=== PATIENT | female | born 1975 | race Caucasian/White ===

== ENCOUNTER 2016-09-03 18:14 | Emergency (ER) | payer MEDICARE, MEDICAID ==
[2016-09-03 18:22] VITALS: BP 126/75
[2016-09-03] MEDS ORDERED: Aspirin Low Dose CHEW TAB* 81 MG PO ONE (18:34)
[2016-09-03] MEDS ORDERED: Famotidine IV* 10 MG/ML 2 ML (20 mg) IV SLOW PU ONE (18:39)
[2016-09-03] MEDS ORDERED: NS 0.9% 1000 ML* 1,000 ML IV ONE (18:39)
[2016-09-03] MEDS ORDERED: Ondansetron INJ* 2 MG/ML VIAL IV ONE (18:39)
[2016-09-03] MEDS ORDERED: Ketorolac INJ* 30 MG/ML 1 ML VIAL IV PUSH ONE (18:40)
--- NOTE | 2016-09-03 19:08 | RAD ---
Indication: Nausea and vomiting. Chest pain. Hyperemesis. Chronic symptoms. History of tobacco use. Comparison: February 16, [address] Technique: Upright AP 1844 hours Report: Negative for free air under the diaphragm or pneumomediastinum. Clear lungs and pleural spaces. Negative for pneumothorax. The heart, pulmonary vasculature, and mediastinal contours are unremarkable. IMPRESSION: No evidence for acute intrathoracic disease.
--- NOTE | 2016-09-03 21:07 | ED ---
Ulysses Garcia Matthew, scribed for Tom Cannon MD on 09/03/16 at 1913 . GI/ HPI - HPI Summary HPI Summary: A 40 y/o female presents to the ED with n/v since 05:00. Since onset, she estimates that she's vomited 30 times. Associated symptoms include diffuse chest and abdominal pain, which she believes is secondary to vomiting. - History of Current Complaint Chief Complaint: EDChestPainROMI Time Seen by Provider: 09/03/16 18:34 Stated Complaint: N/V Hx Obtained From: Patient Onset/Duration: Started Hours Ago, Atraumatic, Still Present Timing: Constant Severity: Moderate Current Severity: Moderate Pain Intensity: 10 Location of Pain: Diffuse Associated Signs and Symptoms: Positive: Nausea, Vomiting, Chest Pain - Additional Pertinent History Primary Care Physician: YOVANNY - Allergy/Home Medications Allergies/Adverse Reactions: Allergies Allergy/AdvReac Type Severity Reaction Status Date / Time No Known Allergies Allergy Verified 02/16/16 12:08 PMH/Surg Hx/FS Hx/Imm Hx Endocrine/Hematology History: Denies: Hx Anticoagulant Therapy, Hx Blood Disorders, Hx Blood Transfusions, Hx Bone Marrow Disease, Hx Diabetes, Hx Systemic Lupus Erythematosus, Hx Sickle Cell Disease, Hx Thyroid Disease, Hx Anemia, Hx Unexplained Bleeding, Other Endocrine/Hematological Disorders Cardiovascular History: Denies: Hx Aneurysm, Hx Angina, Hx Angioplasty, Hx Atrial Fibrillation, Hx Auto Implanted Cardiovert Defib, Hx Cardiac Arrest, Hx Cardiomegaly, Hx Congenital Heart Disease, Hx Congestive Heart Failure, Hx Coronary Artery Disease, Hx Deep Vein Thrombosis, Hx Embolism, Hx Hypercholesterolemia, Hx Hypotension, Hx Hypertension, Hx Myocardial Infarction, Hx Pacemaker/ICD, Hx Peripheral Vascular Disease, Hx Rheumatic Fever, Hx Syncope, Hx Valvular Heart Disease, Other Cardiovascular Problems/Disorders Respiratory History: Denies: Hx Asthma, Hx Bronchopulmonary Dysplasia, Hx Chronic Bronchitis, Hx Chronic Obstructive Pulmonary Disease (COPD), Hx Cystic Fibrosis, Hx Lung Cancer , Hx Pleural Effusion, Hx Pneumonia, Hx Pulmonary Edema, Hx Pulmonary Embolism, Hx Seasonal Allergies, Hx Sleep Apnea, Other Respiratory Problems/Disorders GI History: Denies: Hx Cirrhosis, Hx Crohn's Disease, Hx Diverticulosis, Hx Gall Bladder Disease, Hx Gastroesophageal Reflux Disease, Hx Gastrointestinal Bleed, Hx Hiatal Hernia, Hx Irritable Bowel, Hx Jaundice, Hx Obstructive Bowel, Hx Ileostomy, Hx Pyloric Stenosis, Hx Ulcer, Hx Urosepsis, Other GI Disorders Musculoskeletal History: Denies: Hx Arthritis, Hx Rheumatoid Arthritis, Hx Back Problems, Hx Bursitis , Hx Congenital Bone Abnormalities, Hx Fibromyalgia, Hx Gout, Hx Orthopedic Injury, Hx Osteoporosis, Hx Scoliosis, Hx Tendonitis, Other Musculoskeletal History Sensory History: Denies: Hx Contacts or Glasses, Hx Hearing Aid Opthamlomology History: Denies: Hx Contacts or Glasses Neurological History: Denies: Hx CVA, Hx Dementia, Hx Developmental Delay, Hx Headaches, Hx Migraine, Hx Nerve Disease, Hx Peripheral Neuropathy, Hx Seizures, Hx Spinal Cord Injury, Hx Transient Ischemic Attacks (TIA), Other Neuro Impairments/ Disorders Psychiatric History: Reports: Hx Anxiety, Hx Depression - Surgical History Surgery Procedure, Year, and Place: plates/screws in back - low back 1999 Hx Anesthesia Reactions: No Infectious Disease History: No Infectious Disease History: Denies: Hx Clostridium Difficile, Hx Hepatitis, Hx Human Immunodeficiency Virus (HIV), Hx of Known/Suspected MRSA, Hx Shingles, Hx Tuberculosis, Traveled Outside the [place] in Last 30 Days - Family History Family History: No FHx of malignant hyperthermia. No FHx of anesthesia reaction - Social History Alcohol Use: None Substance Use Type: Reports: Marijuana Substance Use Comment - Amount & Last Used: DAILY Hx Tobacco Use: Yes Smoking Status (MU): Current Every Day Smoker Type: Cigarettes Amount Used/How Often: 1/2 ppd Have You Smoked in the Last Year: Yes Review of Systems Constitutional: Negative Eyes: Negative ENT: Negative Positive: Chest Pain - Diffuse Respiratory: Negative Positive: Abdominal Pain - Diffuse, Vomiting, Nausea Genitourinary: Negative Musculoskeletal: Negative Skin: Negative Neurological: Negative Psychological: Normal All Other Systems Reviewed And Are Negative: Yes Physical Exam - Summary Physical Exam Summary: VITAL SIGNS: Reviewed. GENERAL: Patient is a well developed and nourished female who is lying comfortable in the stretcher. Patient is not in any acute respiratory distress. HEAD AND FACE: No signs of trauma. No ecchymosis, hematomas or skull depressions. No sinus tenderness. EYES: PERRLA, EOMI x 2, No injected conjunctiva, no nystagmus. EARS: Hearing grossly intact. Ear canals and tympanic membranes are within normal limits. MOUTH: Oropharynx within normal limits. NECK: Supple, trachea is midline, no adenopathy, no JVD, no carotid bruit, no c- spine tenderness, neck with full ROM. CHEST: Symmetric, no tenderness at palpation LUNGS: Clear to auscultation bilaterally. No wheezing or crackles. CVS: Regular rate and rhythm, S1 and S2 present, no murmurs or gallops appreciated. ABDOMEN: Soft, non-tender. No signs of distention. No rebound no guarding, and no masses palpated. Bowel sounds are normal. EXTREMITIES: FROM in all major joints, no edema, no cyanosis or clubbing. NEURO: Alert and oriented x 3. No acute neurological deficits. Speech is normal and follows commands. SKIN: Dry and warm Triage Information Reviewed: Yes Vital Signs On Initial Exam: Initial Vitals Temp Pulse Resp BP Pulse Ox 98.3 F 70 16 126/75 97 09/03/16 18:18 09/03/16 18:18 09/03/16 18:18 09/03/16 18:18 09/03/16 18:18 Vital Signs Reviewed: Yes Diagnostics - Vital Signs Vital Signs Temp Pulse Resp BP Pulse Ox 09/03/16 18:18 98.3 F 70 16 126/75 97 - Laboratory Lab Statement: Any lab studies that have been ordered have been reviewed, and results considered in the medical decision making process. - Radiology CXR Xray Interpretation: No Acute Changes - IMPRESSION: No evidence for acute intrathoracic disease. Radiology Interpretation Completed By: Parker QUICK Course/Dx - Course Assessment/Plan: A 40 y/o female presents to the ED with n/v since 05:00. Since onset, she estimates that she's vomited 30 times. Associated symptoms include diffuse chest and abdominal pain, which she believes is secondary to vomiting. The patient suddenly felt better. She no longer has chest pain, SOB, nausea, or vomiting. She reports that she wants to go home. At this point, we havent done any of the work-up since the patient just came into the room; however, the patient wants to be discharged. The patient will discharged against medical advice. I extensively discussed with the patient the benefits and risk of leaving AMA. I also discussed the alternatives to leaving AMA, however, the patient still insist to leave the hospital AMA.. The primary nurse and the charge nurse also strongly recommended that the patient should not leave AMA. Patient understands the risk of leaving AMA, which includes but is not restricted to . Patient is Alert and oriented times three and patient verbalizes understanding. Patient has full capacity and is cognitively intact. Patient signed the AMA form. Patient was also advised to return to ED if he changes his mind or if the symptoms worsen or other symptoms appear. Patient understands and agrees. - Diagnoses Differential Diagnoses - Female: Other - ACS, Chest wall pain, URI, GERD, Provider Diagnoses: Chest pain, Nausea and vomiting Discharge - Discharge Plan Condition: Stable Disposition: AGAINST MEDICAL ADVICE Patient Education Materials: Acute Nausea and Vomiting (ED) Referrals: Queenie Montes NP [Primary Care Provider] - 2 Days Additional Instructions: Please follow-up with your primary care physician. The documentation as recorded by the Ulysses ivory Matthew accurately reflects the service I personally performed and the decisions made by me, Tom Cannon MD.
== END 2016-09-03 19:20 | disposition left against medical advice (07) ==
LOC: ED 18:14
DX: R07.9 Chest pain, unspecified (principal); R11.2 Nausea with vomiting, unspecified; F17.210 Nicotine dependence, cigarettes, uncomplicated
CPT/HCPCS: 71010; 93005; 96374; 96375; 99282; J1885; J2405

== ENCOUNTER 2017-06-10 14:36 | Emergency (ER) | payer MEDICARE, MEDICAID ==
[2017-06-10] MEDS ORDERED: NS 0.9% 1000 ML* 3,000 ML IV ONE (14:39)
[2017-06-10] MEDS ORDERED: LORazepam INJ* 2 MG/ML 1 ML VIAL IV ONE (14:39)
[2017-06-10] MEDS ORDERED: Ondansetron INJ* 2 MG/ML VIAL IV ONE (14:39)
[2017-06-10 15:15] LABS: Hematocrit 45 % (35-47); Hemoglobin 15.2 g/dl (12.0-16.0); Mean Corpuscular HGB Conc 34 g/dl (31-36); Mean Corpuscular Hemoglobin 31 pg (27-31); Mean Corpuscular Volume 91 fL (80-97); Mean Platelet Volume 8 um3 (7.4-10.4); Red Blood Count 4.98 10^6/ul (4.0-5.4); Red Cell Distribution Width 13 % (10.5-15); White Blood Count 17.2 10^3/ul (3.5-10.8)
[2017-06-10] MEDS ORDERED: Pantoprazole IV* 40 MG IV ONE (15:29)
[2017-06-10 15:30] LABS: ALT 10 U/L (7-52); AST 16 U/L (13-39); Albumin 4.1 g/dL (3.2-5.2); Alkaline Phosphatase 61 U/L (34-104); Anion Gap 9 mmol/L (2-11); Blood Urea Nitrogen 9 mg/dL (6-24); C Reactive Protein 6.56 mg/L (< 5.00); CO2 Carbon Dioxide 21 mmol/L (22-32); Calcium 9.2 mg/dL (8.6-10.3); Chloride 111 mmol/L (101-111); EGFR African American 119.4 (>60); EGFR Non-African American 92.9 (>60); Globulin 3.5 g/dL (2-4); Glucose 132 mg/dL (70-100); Potassium 3.8 mmol/L (3.5-5.0); Sodium 141 mmol/L (133-145); Total Protein 7.6 g/dL (6.4-8.9)
[2017-06-10 15:42] LABS: Acetaminophen < 15 mcg/mL; Alcohol < 10 mg/dL (<10); Salicylate < 2.50 mg/dL (<30)
--- NOTE | 2017-06-10 16:10 | RAD ---
Indication: Abdominal pain and vomiting. CT of the abdomen and pelvis was performed without oral or IV contrast administration. Coronal and sagittal reconstructed images were obtained. Lung bases demonstrate no pleural fluid, nodules or masses. Heart is of normal size without evidence of pericardial effusion. Liver is normal in size. No focal lesions or intrahepatic ductal dilatation is noted. The spleen is normal in size. The pancreas demonstrates no mass or pancreatic duct dilatation. The common duct is not dilated. Gallbladder demonstrates no calcific gallstones. No pericholecystic fluid or wall thickening is identified. No adrenal lesions are noted. The kidneys demonstrates no hydronephrosis in either kidney. Aorta and inferior vena cava are unremarkable. No hydroureter is noted. No retroperitoneal adenopathy is noted. The ovaries are prominent in size. There is presumed hysterectomy. Structure resembling the right ovary measures approximately 3.2 x 3.4 cm the left ovary measures approximately 2.8 x 2.2 cm. No free fluid is identified. No hernias are noted. Urinary bladder is unremarkable. The bony structures demonstrates fusion of L5-S1. IMPRESSION: No definite bowel obstruction is noted with no dilated loops of bowel although evaluation is limited due to lack of oral contrast. No obstructive uropathy is noted.
--- NOTE | 2017-06-10 16:28 | ED ---
Clyde Garcia Tecjoon, scribed for Anjum Rodriguez MD on 06/10/17 at 1531 . GI/ HPI - HPI Summary HPI Summary: This patient is a 41 year old female BIBA to [facility] with a chief complaint of nausea and vomiting since this morning. Pt states she has been nauseous for a few days, but without vomiting. After eating fast food last night, she had progressively worsening symptoms through the night. The pain is rated 10/10 in severity. Symptoms aggravated by eating. Symptoms alleviated by Ativan, given upon visit. Patient additionally reports chills, diaphoresis, cough, sore throat , general abd pain, and chest pain. Patient denies fever, urinary problems, diarrhea. Patient notes that these symptoms are recurrent ever since her 2004 . Patient also has a Hx of anxiety. - History of Current Complaint Chief Complaint: EDNauseaVomitDiarrh Time Seen by Provider: 06/10/17 14:39 Stated Complaint: VOMITING Hx Obtained From: Patient Hx Last Menstrual Period: depo shots - no periods Onset/Duration: Started Hours Ago - this morning, Still Present Timing: Constant, Intermittent - episodes of vomiting Current Severity: Moderate Pain Intensity: 10 Location of Pain: Diffuse Pain Radiates to: Chest Associated Signs and Symptoms: Positive: Negative - fever, urinary problems, diarrhea, Other: - chills, diaphoresis, cough, sore throat, general abd pain, and chest pain Aggravating Factor(s): Food Alleviating Factor(s): Medication - Ativan, given upon visit - Additional Pertinent History Primary Care Physician: YOVANNY - Allergy/Home Medications Allergies/Adverse Reactions: Allergies Allergy/AdvReac Type Severity Reaction Status Date / Time No Known Allergies Allergy Verified 02/16/16 12:08 PMH/Surg Hx/FS Hx/Imm Hx Previously Healthy: No Endocrine/Hematology History: Denies: Hx Anticoagulant Therapy, Hx Blood Disorders, Hx Blood Transfusions, Hx Bone Marrow Disease, Hx Diabetes, Hx Systemic Lupus Erythematosus, Hx Sickle Cell Disease, Hx Thyroid Disease, Hx Anemia, Hx Unexplained Bleeding, Other Endocrine/Hematological Disorders Cardiovascular History: Denies: Hx Aneurysm, Hx Angina, Hx Angioplasty, Hx Atrial Fibrillation, Hx Auto Implanted Cardiovert Defib, Hx Cardiac Arrest, Hx Cardiomegaly, Hx Congenital Heart Disease, Hx Congestive Heart Failure, Hx Coronary Artery Disease, Hx Deep Vein Thrombosis, Hx Embolism, Hx Hypercholesterolemia, Hx Hypotension, Hx Hypertension, Hx Myocardial Infarction, Hx Pacemaker/ICD, Hx Peripheral Vascular Disease, Hx Rheumatic Fever, Hx Syncope, Hx Valvular Heart Disease, Other Cardiovascular Problems/Disorders Respiratory History: Denies: Hx Asthma, Hx Bronchopulmonary Dysplasia, Hx Chronic Bronchitis, Hx Chronic Obstructive Pulmonary Disease (COPD), Hx Cystic Fibrosis, Hx Lung Cancer , Hx Pleural Effusion, Hx Pneumonia, Hx Pulmonary Edema, Hx Pulmonary Embolism, Hx Seasonal Allergies, Hx Sleep Apnea, Other Respiratory Problems/Disorders GI History: Reports: Other GI Disorders - Chronic N/V Denies: Hx Cirrhosis, Hx Crohn's Disease, Hx Diverticulosis, Hx Gall Bladder Disease, Hx Gastroesophageal Reflux Disease, Hx Gastrointestinal Bleed, Hx Hiatal Hernia, Hx Irritable Bowel, Hx Jaundice, Hx Obstructive Bowel, Hx Ileostomy, Hx Pyloric Stenosis, Hx Ulcer, Hx Urosepsis Musculoskeletal History: Denies: Hx Arthritis, Hx Rheumatoid Arthritis, Hx Back Problems, Hx Bursitis , Hx Congenital Bone Abnormalities, Hx Fibromyalgia, Hx Gout, Hx Orthopedic Injury, Hx Osteoporosis, Hx Scoliosis, Hx Tendonitis, Other Musculoskeletal History Sensory History: Denies: Hx Contacts or Glasses, Hx Hearing Aid Opthamlomology History: Denies: Hx Contacts or Glasses Neurological History: Denies: Hx CVA, Hx Dementia, Hx Developmental Delay, Hx Headaches, Hx Migraine, Hx Nerve Disease, Hx Peripheral Neuropathy, Hx Seizures, Hx Spinal Cord Injury, Hx Transient Ischemic Attacks (TIA), Other Neuro Impairments/ Disorders Psychiatric History: Reports: Hx Anxiety, Hx Depression - Surgical History Surgery Procedure, Year, and Place: plates/screws in back - low back 1999 Hx Anesthesia Reactions: No Infectious Disease History: No Infectious Disease History: Denies: Hx Clostridium Difficile, Hx Hepatitis, Hx Human Immunodeficiency Virus (HIV), Hx of Known/Suspected MRSA, Hx Shingles, Hx Tuberculosis, Traveled Outside the [place] in Last 30 Days - Family History Known Family History: Positive: Other Family History: No FHx of malignant hyperthermia. No FHx of anesthesia reaction - Social History Alcohol Use: Occasionally Hx Substance Use: Yes Substance Use Type: Reports: Marijuana Substance Use Comment - Amount & Last Used: DAILY Hx Tobacco Use: Yes Smoking Status (MU): Light Every Day Tobacco Smoker Type: Cigarettes Amount Used/How Often: 1/2 ppd Have You Smoked in the Last Year: Yes Review of Systems Positive: Chills, Skin Diaphoresis. Negative: Fever Positive: Sore Throat Positive: Chest Pain Positive: Cough Positive: Abdominal Pain, Vomiting, Nausea. Negative: Diarrhea Genitourinary: Negative - any urinary problems Positive: Anxious All Other Systems Reviewed And Are Negative: Yes Physical Exam - Summary Physical Exam Summary: General: mildly anxious Skin: warm, color reflects adequate perfusion, dry Head: normal Eyes: EOMI, KAL ENT: Oral Mucosa dry. Neck: supple, nontender Respiratory: CTA, breath sounds present Cardiovascular: RRR Abdomen: tender in epigastrium Bowel: hypoactive bowel sounds Musculoskeletal: normal, strength/ROM intact Neurological: normal, sensory/motor intact, A&O x3 Psychological: affect/mood appropriate Triage Information Reviewed: Yes Vital Signs On Initial Exam: Initial Vitals BP 103/58 06/10/17 14:49 Vital Signs Reviewed: Yes - Alfredo Coma Scale Coma Scale Total: 15 Diagnostics - Vital Signs Vital Signs Temp Pulse Resp BP Pulse Ox 06/10/17 14:59 100 06/10/17 14:54 96.7 F 61 20 103/58 97 06/10/17 14:52 20 06/10/17 14:50 76 98 06/10/17 14:49 103/58 - Laboratory Lab Results: Lab Results 06/10/17 06/10/17 Range/Units 14:47 14:47 WBC 17.2 H (3.5-10.8) 10^3/ul RBC 4.98 (4.0-5.4) 10^6/ul Hgb 15.2 (12.0-16.0) g/dl Hct 45 (35-47) % MCV 91 (80-97) fL MCH 31 (27-31) pg MCHC 34 (31-36) g/dl RDW 13 (10.5-15) % Plt Count 374 (150-450) 10^3/ul MPV 8 (7.4-10.4) um3 Neut % (Auto) 83.7 H (38-83) % Lymph % (Auto) 10.9 L (25-47) % Mcintosh % (Auto) 4.6 (1-9) % Eos % (Auto) 0.4 (0-6) % Baso % (Auto) 0.4 (0-2) % Absolute Neuts (auto) 14.4 H (1.5-7.7) 10^3/ul Absolute Lymphs (auto) 1.9 (1.0-4.8) 10^3/ul Absolute Monos (auto) 0.8 (0-0.8) 10^3/ul Absolute Eos (auto) 0.1 (0-0.6) 10^3/ul Absolute Basos (auto) 0.1 (0-0.2) 10^3/ul Absolute Nucleated RBC 0.01 10^3/ul Nucleated RBC % 0.1 INR (Anticoag Therapy) 0.92 (0.77-1.02) APTT 27.9 (26.0-36.3) seconds Result Diagrams: 06/10/17 14:47 06/10/17 14:47 Lab Statement: Any lab studies that have been ordered have been reviewed, and results considered in the medical decision making process. - CT CT Abd/Pel CT Interpretation: Positive (See Comments) - IMPRESSION: No definite bowel obstruction is noted with no dilated loops of bowel although evaluation is limited due to lack of oral contrast. No obstructive uropathy is noted. ED physician has reviewed this radiology report. CT Interpretation Completed By: Radiologist ABDELRAHMAN Course/Dx - Course Course Of Treatment: IMPROVED IN ED. DISCUSSED RESULTS WITH PATIENT. TOLERATED PO. F/U PMD AND GI; RETURN IF WORSE. - Diagnoses Provider Diagnoses: Nausea & vomiting, Dehydration, Abdominal pain Discharge - Discharge Plan Condition: Stable Disposition: HOME Prescriptions: Ondansetron ODT TAB* [Zofran 4 MG Odt TAB*] 4 mg PO Q6H PRN #10 tab.odt PRN Reason: Nausea Patient Education Materials: Acute Nausea and Vomiting (ED), Abdominal Pain (ED ), Dehydration (ED) Referrals: Jessa Michael MD [Primary Care Provider] - [facility] [Provider Group] Additional Instructions: FOLLOW UP WITH YOUR PRIMARY CARE DOCTOR AND GASTROENTEROLOGY. RETURN TO THE EMERGENCY DEPARTMENT FOR ANY WORSENING OF YOUR CONDITION; PAIN, FEVER, DEHYDRATION, YOU FEEL ILL OR QUESTIONS OR CONCERNS. The documentation as recorded by the Clyde ivory Tecjoon accurately reflects the service I personally performed and the decisions made by me, Anjum Rodriguez MD.
[2017-06-10] MEDS ORDERED: O ndansetron ODT 4MG 2TAB PRPK 4 MG PAK PO ONE ×2 (16:29→16:32)
[2017-06-10 17:10] VITALS: BP 119/83
== END 2017-06-10 17:11 | disposition home or self-care (01) ==
LOC: ED 14:36
DX: R11.2 Nausea with vomiting, unspecified (principal); E86.0 Dehydration; R10.9 Unspecified abdominal pain; F17.210 Nicotine dependence, cigarettes, uncomplicated
CPT/HCPCS: 36415; 74176; 80053; 80320; 80329; 83605; 83735; 84702; 85025; 85610; 85730; 86140; 96361; 96374; 96375; 99283; A9270-GY; G0480; J2060; J2405

== ENCOUNTER 2017-07-27 07:04 | Day surgery (SDC) | payer MEDICARE, MEDICAID ==
--- NOTE | 2017-07-18 16:40 | HP ---
CC: Dr. Jessa Michael* PREOPERATIVE HISTORY AND PHYSICAL: DATE OF ADMISSION: This patient is scheduled for same-day surgery admission by Dr. Monterroso on 07/27/17. DATE OF PREOPERATIVE HISTORY AND PHYSICAL EXAMINATION: 07/18/17. ATTENDING SURGEON: Dr. Jane Monterroso * (dictated by Winnie Davila NP) CHIEF COMPLAINT: Left breast mass. HISTORY OF PRESENT ILLNESS: The patient is a 41-year-old female referred to Dr. Monterroso by nurse practitioner, Queenie Montes, for evaluation of a left breast "tumor." The patient requested a mammogram, which was done 06/28/17, the patient was having drainage from the right nipple and was started on an antibiotic with resolution of the drainage; however, the baseline mammogram identified a "tumor" in the left breast, which was described as a solid nodule at the 12 o'clock position. 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 The imaging also found a complex cyst and asymmetric density in the right breast for which 6-month followup has been recommended. Menarche was at age 10, hysterectomy at age 40 for fibroids; first delivery was at age 14; the patient previously took control pills for more than 10 years. She has never had radiation to the chest. She has no family history of breast or ovarian cancer. Dr. Monterroso has examined the patient and has recommended mammo- guided needle localization excision of the left breast phyllodes tumor as a same -day surgery procedure. Dr. Monterroso discussed the nature of the surgical procedure, the rationale for the procedure, the relevant risks and benefits, and today I reviewed the expected postoperative care and recovery. The patient has had a chance to ask questions and stated that she understands the information and is satisfied with the answers given to her questions. She will sign surgical consent on the day of surgery. PAST MEDICAL HISTORY: Significant for obesity, depression, and smoking. PAST SURGICAL HISTORY: Hysterectomy for large fibroids, January 2016 and back surgery, 2000. OB HISTORY: 7, para 5, 2. She is up-to-date with breast exam , mammogram, pelvic and Pap smear and is status post hysterectomy. MEDICATIONS: 1. Lorazepam 1 mg p.o. every 12 hours p.r.n. anxiety. 2. Duloxetine 60 mg p.o. daily at bedtime. 3. Cyclobenzaprine 10 mg daily at bedtime. 4. Hydrocodone/acetaminophen 10/325 mg 1 tablet every 8 hours p.r.n. back pain. 5. NicoDerm CQ 21 mg patch, reapply every 24 hours. ALLERGIES: No known drug allergies. SOCIAL HISTORY: She is ; she is employed as a home health aide. She is currently smoking approximately 3 cigarettes per day. Previously, was smoking a half pack per day. She is using a NicoDerm patch to try to quit. She denies the use of alcohol or other substances. FAMILY HISTORY: No known breast cancer, ovarian cancer. No known anesthesia complications, bleeding disorders, or clotting disorders. REVIEW OF SYSTEMS: Constitutional: No fevers, chills, excessive fatigue, or weight loss. Endocrine: No diabetes or thyroid disease. Hematologic: No easy bruising or bleeding. Breasts: As described in history of present illness. Respiratory: No dyspnea on exertion or chronic cough. She is trying to quit smoking with the use of a NicoDerm patch and she does have a quit date. Cardiovascular: No anginal chest pain or palpitations. Gastrointestinal: No nausea, vomiting, diarrhea, or constipation, or change in bowel habits. Genitourinary: No dysuria. Musculoskeletal: Chronic lower back pain. Neurologic: No headache or blurred vision or areas of focal weakness or numbness. General: No history of deep vein thrombosis or pulmonary embolism; she states that with general anesthesia for her hysterectomy in January 2016, she had what she described as hypertension and low heart rate in the PACU. PHYSICAL EXAMINATION GENERAL SURVEY: The patient is a 41-year-old female, well developed, overweight , in no acute distress. VITAL SIGNS: Height 64 inches, weight 205 pounds, body mass index 35. Blood pressure 138/80, pulse 80 and regular, respiratory rate 16, temperature 97.1 tympanic. HEENT: Benign. NECK: Supple. No cervical lymphadenopathy. No supraclavicular lymphadenopathy. BREASTS: Symmetric. No masses noted in the left breast. No masses noted in the right breast. No nipple discharge from either nipple. No palpable axillary lymphadenopathy. LUNGS: Breath sounds bilaterally clear and equal. HEART: Regular rate and rhythm. No murmurs or rubs appreciated. ABDOMEN: Active bowel sounds. Well-healed Pfannenstiel scar, soft, nondistended, nontender throughout. No obvious masses or ventral or incisional hernias. No organomegaly. PELVIC: Exam done recently, not repeated. RECTAL: Exam done recently, not repeated. EXTREMITIES: Warm without edema or skin ulceration. NEUROLOGIC: Alert and oriented x3. Steady gait. SKIN: Warm, dry, intact. IMPRESSION: Left breast phyllodes tumor. PLAN: Same-day surgery admission to Dr. Monterroso's service on 07/27/17, for mammo-guided needle localization excision of the left breast phyllodes tumor. BRIE DAVILA, [employer] [id number]/[facility] #: [id number] NAJMA
[~2017-07-27 07:04] MED LIST: Buffered Lidocaine 0.9% SYRIN* 5 ML/SYR SYRINGE INTRADERM ONE; Dexamethasone IV* 4 MG/ML 1 ML (4 MG) IV SLOW PU ONE; Famotidine IV* 10 MG/ML 2 ML (20 mg) IV ONE
[2017-07-27] MEDS ORDERED: Lidocaine 2.5%/Prilocain 2.5%* 5 GM TUBE ONE (07:13)
[2017-07-27] MEDS ORDERED: Buffered Lidocaine 0.9% SYRIN* 5 ML/SYR SYRINGE ONE (07:13)
[2017-07-27] MEDS ORDERED: ceFAZolin 2 GM PREMIX (*) 2 GM/50 ML BAG IVPB ONE (09:07)
[2017-07-27] MEDS ORDERED: Famotidine IV* 10 MG/ML 2 ML (20 mg) ONE (09:07)
[2017-07-27] MEDS ORDERED: Dexamethasone IV* 4 MG/ML 1 ML (4 MG) ONE (09:07)
--- NOTE | 2017-07-27 10:14 | RAD ---
INDICATION: Left breast needle localization. COMPARISON: Correlation is made with prior mammograms and breast ultrasound from June 28, 2017 and prior mammograms and breast ultrasound from July 04, 2017. TECHNIQUE: The benefits and risks of the procedure were explained to the patient. The patient consented to the exam. A timeout was performed before beginning the procedure. The patient was prepped in the usual sterile fashion. The breast was anesthetized with buffered 1% lidocaine. Using digital mammographic guidance a needle was placed immediately adjacent to a small nodule and localization clip from the prior biopsy. This was exchanged for a Hawkin's type wire. Postprocedure mammograms demonstrate that the wire extending through the region of the nodule in the adjacent to the biopsy clip. The wire tip extends approximately 3.5 cm beyond the lesion.. The patient tolerated the procedure without incident. The results of this exam were discussed with the referring clinician. IMPRESSION: SUCCESSFUL NEEDLE LOCALIZATION PROCEDURE.
[2017-07-27] MEDS ORDERED: Bupivacaine 0.5% SDV PF* 10-30ML VIAL ONE (11:33)
[2017-07-27] MEDS ORDERED: Lidocaine 1% INJ* 10 MG/ML 30 ML SDV ONE (11:33)
[2017-07-27] MEDS ORDERED: Midazolam* 1 MG/ML 5 ML VIAL (5 MG) ONE (11:39)
[2017-07-27] MEDS ORDERED: fentaNYL* 50 MCG/ML 2 ML VIAL (100 MCG VIAL) ONE ×2 (11:39→12:01)
[2017-07-27] MEDS ORDERED: Naloxone* 0.4 MG/ML 1 ML VIAL IV PRN (11:40)
[2017-07-27] MEDS ORDERED: DiMENhydriNATE IV* 50 MG/ML VIAL IV PUSH PRN (11:40)
[2017-07-27] MEDS ORDERED: oxyCODONE/Acetamin 5/325 MG* TAB PO PRN (11:40)
[2017-07-27] MEDS ORDERED: HYDROcodone/ACETAMIN 5-325 MG* 1 TAB PO PRN (11:40)
[2017-07-27] MEDS ORDERED: fentaNYL* 50 MCG/ML 2 ML VIAL (100 MCG VIAL) IV PRN (11:40)
[2017-07-27] MEDS ORDERED: Lidocaine 2% PF * 5 ML VIAL ONE (11:54)
[2017-07-27] MEDS ORDERED: Propofol* 10 MG/ML 20 ML BTL IV PUSH ONE ×2 (11:54→12:32)
[2017-07-27] MEDS ORDERED: Ondansetron INJ* 2 MG/ML VIAL ONE (12:29)
[2017-07-27 15:07] VITALS: BP 122/78
--- NOTE | 2017-07-28 13:18 | OP ---
CC: Dr. Jessa Michael * DATE OF OPERATION: 07/27/17 - [facility] DATE OF : 71 SURGEON: Jane Monterroso MD MANAGER FLIGHT OPERATIONS: There was no clinical physician assistant for this case. PRE-OP DIAGNOSIS: Left breast phyllodes tumor. POST-OP DIAGNOSIS: Left breast phyllodes tumor. OPERATIVE PROCEDURE: Needle localization and excision of left breast phyllodes tumor. INDICATIONS: This patient is a 41-year-old woman recently diagnosed with a phyllodes tumor for whom wide excision has been advised. On the morning of surgery, she underwent needle localization without difficulty. DESCRIPTION OF PROCEDURE: She was then brought to the operating room, placed on the OR table in a supine position and given IV sedation. The left breast was prepped and draped in the usual sterile fashion, taking care not to dislodge the localizing wire. After infiltrating with local anesthetic, a curvilinear elliptical incision encompassing the wire was made. Subcutaneous tissue was divided with electrocautery to completely excise the massive tissue from around the wire. However, it was noted that the deepest portion came across the wire at the level of the notch, which was just beyond the clip. So, the decision was made to remove the tissue from around the wire, leaving the wire in situ and note this specimen as the specimen containing the clip with the usual markings and the additional brian of a single stitch marking the appositional surface. Then, the wire in the breast was removed by excising with electrocautery tissue from around the wire. This time, the wire came out with the tissue. The tissue was marked in usual fashion again with a single stitch marking the appositional surface. This tissue was notated as the tissue containing the wire. The specimens were sent to Radiology and eventually the report came back from Radiology that they did not indeed contain the abnormality. Meanwhile, hemostasis was achieved with a combination of electrocautery and suture ligature. A bleeding vessel in the depth has the wound, required several suture ligatures. Once hemostasis appeared adequate, the wound was irrigated copiously with saline. Additional local was instilled into the wound and then closure was accomplished with 3-0 Polysorb in a subcutaneous layer and the skin was closed with 4-0 Prolene in subcuticular fashion. Steri-Strips and a dry sterile dressing were applied. All sponge and instrument counts were correct. The patient tolerated the procedure well and was transferred to Recovery in a stable condition. [id number]/[facility] #: [id number] NAJMA
== END 2017-07-27 15:47 | disposition home or self-care (01) ==
LOC: SDS 07:04
PROVIDERS: ATTEND Surgery
DX: D24.2 Benign neoplasm of left breast (principal); F17.210 Nicotine dependence, cigarettes, uncomplicated; E66.9 Obesity, unspecified; F32.9 Major depressive disorder, single episode, unspecified
CPT/HCPCS: 88307; A9270-GY; J0690; J1100; J2250; J2405; J2704; J3010

== ENCOUNTER 2017-10-28 17:07 | Emergency (ER) | payer MEDICARE, MEDICAID ==
[2017-10-28 17:22] VITALS: BP 140/93
--- NOTE | 2017-10-28 17:27 | UC ---
Back Pain HPI - HPI Summary HPI Summary: 42 yo female presents with low back pain for the last 3 days. 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 Has some lumbar pain with intermittent "shooting" pain down back of right leg. Taking ibuprofen with little relief. Has a hx of lower back surgery 18 years ago. Denies specific injury, fever, chills, dysuria, loss of bowel/bladder control. - History of Current Complaint Chief Complaint: UCBackPain Stated Complaint: BACK INJURY Time Seen by Provider: 10/28/17 17:27 Hx Obtained From: Patient Hx Last Menstrual Period: depo shots - no periods Onset/Duration: Sudden Onset Severity Initially: Severe Severity Currently: Severe Pain Intensity: 10 Pain Scale Used: 0-10 Numeric Aggravating Factor(s): Movement, Bending Alleviating Factor(s): Rest, Position - Allergies/Home Medications Allergies/Adverse Reactions: Allergies Allergy/AdvReac Type Severity Reaction Status Date / Time No Known Allergies Allergy Verified 10/28/17 17:22 Home Medications: Home Medications Ibuprofen 40 mg PO Q6H PRN 10/28/17 [History Confirmed 10/28/17] Sertraline* [Zoloft*] 25 mg PO DAILY 10/28/17 [History Confirmed 10/28/17] clonazePAM TAB(*) [KlonoPIN TAB(*)] 1 mg PO BID PRN 10/28/17 [History Confirmed 10/28/17] PMH/Surg Hx/FS Hx/Imm Hx Previously Healthy: Yes Psychological History: Anxiety, Depression Other History Of: Negative For: Anticoagulant Therapy - Surgical History Surgical History: Yes Surgery Procedure, Year, and Place: plates/screws in back - low back 1999. hysterectomy 01/2015 [facility] [place] - Family History Known Family History: Positive: Other Family History: No FHx of malignant hyperthermia. No FHx of anesthesia reaction - Social History Occupation: Employed Full-time Lives: With Family Alcohol Use: Rare Alcohol Amount: 2 A MONTH Substance Use Type: None Substance Use Comment - Amount & Last Used: DAILY Smoking Status (MU): Light Every Day Tobacco Smoker Type: Cigarettes Amount Used/How Often: 1/2 PPD Length of Time of Smoking/Using Tobacco: 29 YEARS Have You Smoked in the Last Year: Yes Household Exposure Type: Cigarettes - Immunization History Most Recent Influenza Vaccination: Unknown Most Recent Tetanus Shot: WITHIN LAST 10 YEARS Most Recent Pneumonia Vaccination: NA Review of Systems Constitutional: Negative Skin: Negative Respiratory: Negative Cardiovascular: Negative Gastrointestinal: Negative Genitourinary: Negative Neurovascular: Negative Musculoskeletal: Other: - Low back pain Neurological: Negative Psychological: Negative All Other Systems Reviewed And Are Negative: Yes Physical Exam - Summary Physical Exam Summary: GENERAL: NAD. WDWN. No pain distress. SKIN: No rashes, sores, lesions, or open wounds. NECK: Supple. FROM. Nontender. No lymphadenopathy. CHEST: CTAB. No r/r/w. No accessory muscle use. Breathing comfortably and in no distress. CV: RRR. Without m/r/g. Pulses intact. Brisk cap refill. MSK: TTP over right lumbar paraspinal muscles. Pain with flexion and extension of spine. Positive SLR right. Strength 5/5 B/L LEs including dorsiflexion and plantar flexion. FROM B/L LEs. No edema. NEURO: Alert. CN II-XII grossly intact. Sensations intact B/L LEs L3-S1. PSYCH: Age appropriate behavior. Triage Information Reviewed: Yes Vital Signs: Initial Vital Signs Temp 98.2 F 10/28/17 17:17 Pulse 86 10/28/17 17:17 Resp 16 10/28/17 17:17 BP 140/93 10/28/17 17:17 Pulse Ox 98 10/28/17 17:17 Back Pain Course/Dx - Course Course Of Treatment: XR: IMPRESSION: Grade 1 spondylolisthesis of L5 on S1. Degenerative disc disease at L4-L5 and L5-S1. Posterior fusion of L5 and S1. Suspect muscle spasm of lower back. Toradol IM given in clinic. Rx for meloxicam. Continue flexeril at home. I advised her to follow up with a neurosurgeon for her spondylolisthesis and surgical hx as her previous surgeon has retired. - Differential Dx/Diagnosis Provider Diagnoses: Low back spasm Discharge - Sign-Out/Discharge Documenting (check all that apply): Discharge/Admit/Transfer - Discharge Plan Condition: Stable Disposition: HOME Prescriptions: Meloxicam 7.5 mg PO BID PRN #14 tab PRN Reason: Pain Patient Education Materials: Muscle Spasm (ED), Lower Back Exercises (ED) Forms: *Work Release Referrals: Jessa Michael MD [Primary Care Provider] - Yulissa Nelson MD [Medical Doctor] - Additional Instructions: If you develop a fever, shortness of breath, chest pain, new or worsening symptoms - please call your PCP or go to the ED. Your blood pressure was high at todays visit. Please see your primary provider within 4 weeks for recheck and re-evaluation. 1) Please schedule a follow up appointment with neurosurgery at the number below 2) Continue your flexeril. Please do not take ibuprofen in addition to the meloxicam as these medications may interact. - Billing Disposition and Condition Condition: STABLE Disposition: HOME
--- NOTE | 2017-10-28 17:51 | RAD ---
Indication: Right leg pain. 5 views of lumbar spine are reviewed. There is grade 1 spondylolisthesis of L5 on S1 with posterior fusion and intervertebral disc replacement at L5-S1. Mild degenerative disc disease at L1-L2 and L2-L3 is noted. IMPRESSION: Grade 1 spondylolisthesis of L5 on S1. Degenerative disc disease at L4-L5 and L5-S1. Posterior fusion of L5 and S1.
[2017-10-28] MEDS ORDERED: Ketorolac INJ* 30 MG/ML 1 ML VIAL IM ONE (17:59)
== END 2017-10-28 18:24 | disposition home or self-care (01) ==
LOC: UCEAST 17:07
DX: M62.830 Muscle spasm of back (principal); M43.17 Spondylolisthesis, lumbosacral region; M51.36 Other intervertebral disc degeneration, lumbar region; F41.9 Anxiety disorder, unspecified; F32.9 Major depressive disorder, single episode, unspecified; F17.210 Nicotine dependence, cigarettes, uncomplicated
CPT/HCPCS: 72110; 96372; 99212; G0463; J1885

== ENCOUNTER 2018-05-19 10:48 | Emergency (ER) | payer MEDICARE, MEDICAID ==
[2018-05-19] MEDS ORDERED: Ondansetron INJ* 2 MG/ML VIAL ONE (11:02)
[2018-05-19] MEDS ORDERED: NS 0.9% 1000 ML* 1,000 ML ONE (11:02)
[2018-05-19] MEDS ORDERED: NS 0.9% 1000 ML* 2,000 ML IV ONE (11:05)
[2018-05-19] MEDS ORDERED: Ondansetron INJ* 2 MG/ML VIAL IV ONE (11:05)
--- NOTE | 2018-05-19 11:05 | ED ---
GI/ HPI - HPI Summary HPI Summary: A 42 y/o female presents to [facility] with a chief complaint of vomiting since 08: 00 05/19/18. The patient states that she has had this problem before. She claims that she drank the night of 05/18/18 and which she believes is the cause of her vomiting. She reports that in the past her vomiting would not stop and her pain would become worse so she was anxious and came into the ED before her pain was too severe. She also c/o nausea. She denies any possibility of since she has a SHx of hysterectomy. She also has a Hx of back surgery. - History of Current Complaint Chief Complaint: EDNauseaVomitDiarrh Time Seen by Provider: 05/19/18 11:01 Stated Complaint: VOMITING Hx Obtained From: Patient Hx Last Menstrual Period: depo shots - no periods Onset/Duration: Started Hours Ago, Still Present Timing: Constant Severity: Moderate Current Severity: Moderate Pain Intensity: 0 Associated Signs and Symptoms: Positive: Nausea - Additional Pertinent History Primary Care Physician: YOVANNY - Allergy/Home Medications Allergies/Adverse Reactions: Allergies Allergy/AdvReac Type Severity Reaction Status Date / Time No Known Allergies Allergy Verified 05/19/18 10:53 PMH/Surg Hx/FS Hx/Imm Hx Endocrine/Hematology History: Denies: Hx Anticoagulant Therapy, Hx Blood Disorders, Hx Blood Transfusions, Hx Bone Marrow Disease, Hx Diabetes, Hx Systemic Lupus Erythematosus, Hx Sickle Cell Disease, Hx Thyroid Disease, Hx Anemia, Hx Unexplained Bleeding, Other Endocrine/Hematological Disorders Cardiovascular History: Denies: Hx Aneurysm, Hx Angina, Hx Angioplasty, Hx Atrial Fibrillation, Hx Auto Implanted Cardiovert Defib, Hx Cardiac Arrest, Hx Cardiomegaly, Hx Congenital Heart Disease, Hx Congestive Heart Failure, Hx Coronary Artery Disease, Hx Deep Vein Thrombosis, Hx Embolism, Hx Hypercholesterolemia, Hx Hypotension, Hx Hypertension, Hx Myocardial Infarction, Hx Pacemaker/ICD, Hx Peripheral Vascular Disease, Hx Rheumatic Fever, Hx Syncope, Hx Valvular Heart Disease, Other Cardiovascular Problems/Disorders Respiratory History: Denies: Hx Asthma, Hx Bronchopulmonary Dysplasia, Hx Chronic Bronchitis, Hx Chronic Obstructive Pulmonary Disease (COPD), Hx Cystic Fibrosis, Hx Lung Cancer , Hx Pleural Effusion, Hx Pneumonia, Hx Pulmonary Edema, Hx Pulmonary Embolism, Hx Seasonal Allergies, Hx Sleep Apnea, Other Respiratory Problems/Disorders GI History: Denies: Hx Cirrhosis, Hx Crohn's Disease, Hx Diverticulosis, Hx Gall Bladder Disease, Hx Gastroesophageal Reflux Disease, Hx Gastrointestinal Bleed, Hx Hiatal Hernia, Hx Irritable Bowel, Hx Jaundice, Hx Obstructive Bowel, Hx Ileostomy, Hx Pyloric Stenosis, Hx Ulcer, Hx Urosepsis, Other GI Disorders History: Denies: Hx Renal Disease Musculoskeletal History: Denies: Hx Arthritis, Hx Rheumatoid Arthritis, Hx Back Problems, Hx Bursitis , Hx Congenital Bone Abnormalities, Hx Fibromyalgia, Hx Gout, Hx Orthopedic Injury, Hx Osteoporosis, Hx Scoliosis, Hx Tendonitis, Other Musculoskeletal History Sensory History: Reports: Hx Contacts or Glasses - OTC reading glasses Denies: Hx Hearing Aid Opthamlomology History: Reports: Hx Contacts or Glasses - OTC reading glasses Neurological History: Denies: Hx CVA, Hx Dementia, Hx Developmental Delay, Hx Headaches, Hx Migraine, Hx Nerve Disease, Hx Peripheral Neuropathy, Hx Seizures, Hx Spinal Cord Injury, Hx Transient Ischemic Attacks (TIA), Other Neuro Impairments/ Disorders Psychiatric History: Reports: Hx Anxiety, Hx Depression Denies: Hx Panic Disorder - Cancer History Hx Chemotherapy: No - Surgical History Surgery Procedure, Year, and Place: PLATES/SCREWS IN BACK-LUMBAR 1999, HYSTERECTOMY 01/2015 [facility], BENIGN TUMOR REMOVED FROM BREAST Hx Anesthesia Reactions: No Infectious Disease History: No Infectious Disease History: Denies: Hx Clostridium Difficile, Hx Hepatitis, Hx Human Immunodeficiency Virus (HIV), Hx of Known/Suspected MRSA, Hx Shingles, Hx Tuberculosis, Traveled Outside the [place] in Last 30 Days - Family History Known Family History: Positive: Other Family History: No FHx of malignant hyperthermia. No FHx of anesthesia reaction - Social History Alcohol Use: Rare Alcohol Amount: 2 A MONTH Hx Substance Use: Yes Substance Use Type: Reports: None Substance Use Comment - Amount & Last Used: DAILY Hx Tobacco Use: Yes Smoking Status (MU): Light Every Day Tobacco Smoker Type: Cigarettes Amount Used/How Often: 1/2 PPD Length of Time of Smoking/Using Tobacco: 29 YEARS Have You Smoked in the Last Year: Yes Review of Systems Positive: Vomiting, Nausea Positive: Anxious All Other Systems Reviewed And Are Negative: Yes Physical Exam - Summary Physical Exam Summary: Appearance: The patient is well-nourished and is retching. Skin: The skin is warm and dry and skin color reflects adequate perfusion. HEENT: The head is normocephalic and atraumatic. The pupils are equal and reactive. The conjunctivae are clear and without drainage. Nares are patent and without drainage. Mouth reveals moist mucous membranes and the throat is without erythema and exudate. The external ears are intact. The ear canals are patent and without drainage. The tympanic membranes are intact. Neck: The neck is supple with full range of motion and non-tender. There are no carotid bruits. There is no neck vein distension. Respiratory: Chest is non-tender. Lungs are clear to auscultation and breath sounds are symmetrical and equal. Cardiovascular: Heart is regular rate and rhythm. There is no murmur or rub auscultated. There is no peripheral edema and pulses are symmetrical and equal. Abdomen: The abdomen is soft and non-tender. There are normal bowel sounds heard in all four quadrants and there is no organomegaly palpated. Musculoskeletal: There is no back tenderness noted. Extremities are non-tender with full range of motion. There is good capillary refill. There is no peripheral edema or calf tenderness elicited. Neurological: Patient is alert and oriented to person, place and time. The patient has symmetrical motor strength in all four extremities. Cranial nerves are grossly intact. Deep tendon reflexes are symmetrical and equal in all four extremities. Psychiatric: The patient exhibits anxiety. Triage Information Reviewed: Yes Vital Signs On Initial Exam: Initial Vitals Temp Pulse Resp BP Pulse Ox 96.9 F 131 24 156/132 100 05/19/18 10:53 05/19/18 10:53 05/19/18 10:53 05/19/18 10:53 05/19/18 10:53 Vital Signs Reviewed: Yes Diagnostics - Vital Signs Vital Signs Temp Pulse Resp BP Pulse Ox 05/19/18 10:53 96.9 F 131 24 156/132 100 - Laboratory Result Diagrams: 05/19/18 11:18 05/19/18 11:18 Lab Statement: Any lab studies that have been ordered have been reviewed, and results considered in the medical decision making process. Re-Evaluation - Re-Evaluation First Eval Re-Evaluation Time: 12:00 Change: Improved Comment: Patient is feeling slightly better. GIGU Course/Dx - Course Course Of Treatment: Ms. Birmingham presented complaining of intractable dry heaving. This happened to her before usually within an infection or sometimes when she drinks alcohol. She did drink alcohol last night and has no other complaints of an infectious nature. She was in quite a bit of distress when she arrived but nontoxic in appearance and her vitals are stable aside from some tachycardia. IV was initiated and she was given fluids and Zofran and this improved her tachycardia and she requested something for her anxiety. She was given Ativan and felt improved and was able to take fluids and solid foods orally and keep them down. She was discharged in stable condition - Diagnoses Provider Diagnoses: Nausea and vomiting Discharge - Sign-Out/Discharge Documenting (check all that apply): Patient Departure - DC - Discharge Plan Condition: Stable Disposition: HOME Patient Education Materials: Acute Nausea and Vomiting (ED) Referrals: Jessa Michael MD [Primary Care Provider] - (2-3 days) Additional Instructions: Follow up with your PCP in 2-3 days. Return to the ED for new or worsening symptoms. - Billing Disposition and Condition Condition: STABLE Disposition: Home - Attestation Statements Document Initiated by Scribe: Yes Documenting Scribe: Guerrero Boudreaux Provider For Whom Carmen is Documenting (Include Credential): Kamran Nazario MD Scribe Attestation: Guerrero Garcia, scribed for Kamran Nazario MD on 05/19/18 at 1245. Scribe Documentation Reviewed: Yes Provider Attestation: The documentation as recorded by the Guerrero ivory accurately reflects the service I personally performed and the decisions made by me, Kamran Nazario MD Status of Scribe Document: Viewed
[2018-05-19] MEDS ORDERED: LORazepam INJ* 2 MG/ML 1 ML VIAL IV ONE (11:28)
[2018-05-19 11:44] LABS: ABS Basophils 0.1 10^3/ul (0-0.2); ABS Eosinophils 0 10^3/ul (0-0.6); ABS Lymphocytes 1.5 10^3/ul (1.0-4.8); ABS Monocytes 0.5 10^3/ul (0-0.8); ABS Neutrophils 9.1 10^3/ul (1.5-7.7); ABS Nucleated RBC 0 10^3/ul; Eosinophil % 0.2 %; Hematocrit 46 % (35-47); Hemoglobin 15.4 g/dl (12.0-16.0); Lymphocyte % 13.5 %; Mean Corpuscular HGB Conc 33 g/dl (31-36); Mean Corpuscular Hemoglobin 30 pg (27-31); Mean Corpuscular Volume 90 fL (80-97); Mean Platelet Volume 7.5 fL (7.4-10.4); Nucleated Red Blood Cells % 0; Platelet Count 396 10^3/ul (150-450); Red Cell Distribution Width 13 % (10.5-15); White Blood Count 11.2 10^3/ul (3.5-10.8)
[2018-05-19 12:57] VITALS: BP 134/78
== END 2018-05-19 12:57 | disposition home or self-care (01) ==
LOC: ED 10:48
DX: R11.2 Nausea with vomiting, unspecified (principal); F17.210 Nicotine dependence, cigarettes, uncomplicated
CPT/HCPCS: 36415; 80053; 83605; 83690; 85025; 86140; 96374; 96375; 99282; J2060; J2405